=== PATIENT | female | born 1965 | race Caucasian/White ===

== ENCOUNTER 2016-04-13 10:45 | Observation (INO) | payer OTHER ==
[2016-04-13] MEDS ORDERED: ASPIRIN 81 MG CHEWABLE TAB PO ONE (10:59)
[2016-04-13] MEDS ORDERED: NS 500 ML IV ONE (10:59)
--- NOTE | 2016-04-13 11:09 | CPEKG ---
Heart Rate: 74 RR Interval: 811 P-R Interval: 188 QRSD Interval: 78 QT Interval: 412 QTC Interval: 457 P [place]: 52 QRS [place]: -7 T Wave [place]: 25 EKG Severity - BORDERLINE ECG - EKG Impression: SINUS RHYTHM EKG Impression: LOW VOLTAGE THROUGHOUT Electronically Signed By: Meagan Sr 13-Apr-2016 12:02:07
[2016-04-13 11:16] LABS: % IMMATURE GRANULYOCYTES 0.3 % (0.0-1.1); ABSOLUTE IMMATURE GRANULOCYTES 0.02 10^3/uL (0.00-0.10); ADD DIFF? NO; ADD MORPH? NO; ADD SCAN? NO; ATYPICAL LYMPHOCYTE FLAG 10 (0-99); FRAGMENT RBC FLAG 0 (0-99); HEMOGLOBIN 15.8 g/dL (12.6-16.3); LEFT SHIFT FLG 0 (0-99); LIPEMIA HEMOLYSIS FLAG 90 (0-99); MEAN CELL HEMOGLOBIN 32.9 pg (27.9-34.1); MEAN CELL HEMOGLOBIN CONCENTR. 34.3 g/dL (32.4-36.7); MEAN CELL VOLUME 95.8 fL (81.5-99.8); PLATELET CLUMPS FLAG 0 (0-99); PLATELET COUNT 256 10^3/uL (150-400); RED CELL DISTRIBUTION WIDTH 12.1 % (11.5-15.2)
--- NOTE | 2016-04-13 11:29 | DX ---
Portable Chest, 1102 a.m. History: Chest pain Comparison: April 01, 2006 Findings: Lungs clear. Heart normal. No pneumothorax, pleural effusion, mass or adenopathy. There has been progressive mild tortuosity of the descending thoracic aorta. Impression: 1. Nothing acute detected 2. Progressive mild descending thoracic tortuosity. Chronic hypertension?
[2016-04-13 11:32] LABS: INR 0.9 (0.83-1.16)
[2016-04-13 11:33] LABS: APTT 24.7 SEC (23.0-38.0)
--- NOTE | 2016-04-13 11:56 | UCPHY ---
[id number] HPI Chest pain. 50-year-old female by private vehicle from home. She reports the onset of chest pain which she describes as a dull ache underneath her left breast since 1 :00 a.m.. She reports that it has been waxing and waning in intensity but has been more or less constant. No radiation of the pain. No shortness of breath. No cough. No fever. She denies any associated diaphoresis or nausea. Past medical history includes hypertension and borderline hyperlipidemia. No history of coronary artery disease or diabetes. She is a nonsmoker. ROS: Constitutional: No fever, no chills. No weakness. Eyes: No discharge. No changes in vision. ENT: No sore throat. No nasal congestion or rhinorrhea. Respiratory: No cough. No shortness of breath. Cardiac: As above, no palpitations. Gastrointestinal: No abdominal pain, no vomiting, no diarrhea. Genitourinary: No hematuria. No dysuria or increased frequency with urination. Musculoskeletal: No back pain. No neck pain. No myalgias or arthralgias. Skin: No rashes. Neurological: No headache. No focal weakness or altered sensation. Past medical history: As above. Primary care physician is Dr. Ramirez. Social history: Nonsmoker. Here by herself. Physical Exam: General Appearance: Alert, no distress. This patient is responding to questions appropriately and in full sentences. This patient appears well- hydrated and well-nourished. Eyes: Pupils equal and round no pallor or injection. No lid edema, erythema or injection. Respiratory: There are no retractions, lungs are clear to auscultation with good air movement bilaterally. Cardiovascular: Regular rate and rhythm. No murmur. Gastrointestinal: Abdomen is soft and nontender, no masses, bowel sounds normal. No focal tenderness at McBurney's point. No Mena sign. Neurological: Motor sensory function is grossly intact. Cranial nerves are normal. Gait is normal. Skin: Warm and dry, no rashes. Musculoskeletal: Neck is supple and nontender. Extremities are symmetrical. All joints range without pain or impingement. Psychiatric: No agitation. No depression. Database: EKG: EKG time is 11:07 a.m.; EKG shows a narrow complex normal sinus rhythm with a ventricular rate of 74. Low voltage throughout. The [place], QRS, QT intervals are within normal limits. There are no ST-T wave changes indicative of ischemic or injury pattern. No evidence of right heart strain. Interpreted by me. Imaging: Chest x-ray AP per; the cardiac mediastinal silhouette is unremarkable. Torturous descending aorta. No evidence of infiltrate or pneumothorax. No acute cardiopulmonary disease process noted. Interpreted by me. Procedures: Emergency department course: IV placed. She was placed on a director of cardiac rehabilitation. EKG and chest x-ray performed. She was given 324 mg of chewed aspirin. 11:55 a.m., patient re-evaluated. Resting comfortably at this time. Denies any significant discomfort at this time. No shortness of breath. Her vital signs have been reviewed. I discussed the results of her diagnostic test. Secondary to a technical problem we were unable to obtain a basic metabolic panel as well as her lipase and liver function tests. Her 1st troponin is negative. I discussed admission for observation, serial enzymes and provocative testing. She is in agreement with this. Hospitalist paged at this time. 12:20 p.m., spoke with on-call hospitalist. Patient accepted for admission, Dr. Bautista is the accepting physician. Plan discussed with the patient. She will be transferred by ambulance to [facility]. All of her questions were answered. She was admitted in stable and improved condition. Differential Diagnosis: The differential diagnosis on this patient includes but is not limited to acute coronary syndrome, musculoskeletal chest pain, esophageal spasm. Pulmonary embolism, aortic dissection pericarditis, myocarditis, pneumonia, pneumothorax unlikely. This represents a partial list of diagnoses considered. These considerations are based on history, physical exam, past history, reassessment and diagnostic testing. Smoking Status: Never smoked Constitutional: Initial Vital Signs Temperature (C) 36.6 C 04/13/16 11:12 Heart Rate 85 04/13/16 11:12 Respiratory Rate 18 04/13/16 11:12 Blood Pressure 120/89 H 04/13/16 11:12 O2 Sat (%) 95 04/13/16 11:12 O2 Delivery Mode Room Air Allergies/Adverse Reactions: No Known Allergies Allergy (Verified 04/13/16 11:12) Home Medications: Medication Instructions Recorded Ferrous Sulfate [Ferrous Sulf 325 325 mg PO BID 04/13/16 MG (*)] Lisinopril/Hydrochlorothiazide 1 tab PO DAILY 04/13/16 [Lisinopril-Hctz 20-12.5 mg Tab] Medical Decision Making - Data Points Laboratory Results: Laboratory Results 04/13/16 11:05 04/13/16 11:05 Medications Given: Discontinued Medications Aspirin (Aspirin) 324 mg PO EDNOW ONE Stop: 04/13/16 11:00 Last Admin: 04/13/16 11:01 Dose: 324 mg Sodium Chloride (Ns) 500 mls @ 0 mls/hr IV ONCE ONE PRN Reason: As Directed Stop: 04/13/16 11:00 Last Admin: 04/13/16 11:18 Dose: 500 mls Departure - Departure Disposition: [facility] Inpatient Acute Clinical Impression: Chest pain - PQRS PQRS Measurement: Not applicable.
[2016-04-13 12:18] LABS: CARBON DIOXIDE 23 mEq/l (22-31); GLUCOSE 90 mg/dL (70-100); TOTAL PROTEIN 7.2 g/dL (6.3-8.2)
[2016-04-13 12:28] LABS: TROPONIN I < 0.012 ng/mL (0-0.034)
[2016-04-13 13:17] LABS: ALANINE AMINOTRANSFERASE 30 IU/L (9-52); ALBUMIN 4.1 g/dL (3.5-5.0); ALKALINE PHOSPHATASE 60 IU/L (38-126); ANION GAP 13 mEq/L (8-16); ASPARTATE AMINOTRANSFERASE 26 IU/L (14-46); BILIRUBIN,TOTAL 1.1 mg/dL (0.1-1.4); BILIRUBIN-CONJUGATED 0.3 mg/dL (0.0-0.5); BILIRUBIN-UNCONJUGATED 0.8 mg/dL (0.0-1.1); CALCIUM 10.1 mg/dL (8.5-10.4); CHLORIDE 105 mEq/L (97-110); CREATININE 0.8 mg/dL (0.6-1.0); GLOMERULAR FILTRATION RATE > 60; SODIUM 141 mEq/L (134-144)
[2016-04-13] MEDS ORDERED: ACETAMINOPHEN 325 MG TAB PO PRN (13:57)
--- NOTE | 2016-04-13 14:55 | GHP ---
[f rep st] HISTORY AND PHYSICAL DATE OF ADMISSION: 04/13/2016 CHIEF COMPLAINT: Chest pain. HISTORY OF PRESENT ILLNESS: A 50-year-old female with a history of hypertension, who presents with s udden onset of burning, stabbing chest pain at 1:30 the morning of presentation. The patient reports the pain woke her from sleep. She took some antacids and seemed to get some relief. She then had m ildly persistent symptoms, not associated with shortness of breath, nausea, vomiting, dizziness, and went to work at 6 in the morning and just felt off through the rest of the morning. Therefore, prese nted to the urgent care for evaluation. Upon arrival to the [facility], the patient reports that chest louie n has resolved. She no longer is experiencing any burning either. Denies any shortness of breath. Denies lower extremity edema. Denies dyspnea on exertion, pleuritic symptoms, or exertional symptoms . PAST MEDICAL HISTORY: 1. Hypertension. 2. Iron deficiency. 3. Perimenopausal. SOCIAL HISTORY: Negative for tobacco, alcohol, or illicit drugs. FAMILY HISTORY: Unknown; the patient is adopted. REVIEW OF SYSTEMS: A 10-point review of systems is negative with the exception of that reported in t he HPI. PHYSICAL EXAMINATION: VITAL SIGNS: Blood pressure 131/103, heart rate 72, respiratory rate 17, 97% on room air, 36.7. GENERAL: This is an obese middle-aged female in no acute distress. HEENT: Nota ble for moist mucous membranes. Eye exam is negative for any icterus. CARDIAC: Patient is regular rate and rhythm. No murmurs, gallops, or rubs. PULMONARY: Good respiratory effort. Clear to auscu ltation bilaterally. GASTROINTESTINAL: Positive bowel sounds. Obese. Soft. Nontender in all 4 k[address]ants. MUSCULOSKELETAL: Negative for any lower extremity edema. SKIN: Negative for any rashes. NEUROLOGIC: The patient is alert and oriented x3. PSYCHIATRIC: She is cooperative on interview and examination. DATA: White count 5.7, hematocrit 46.0, platelets of 256. Creatinine of 0.8. Troponin less than 0. 012. EKG, which I personally reviewed and interpreted, shows sinus rhythm, normal axis, normal inter vals, with no acute ST-T changes. Chest x-ray, which I personally reviewed and interpreted, shows no acute infiltrates or edema. ASSESSMENT AND PLAN: This is a 50-year-old female with hypertension, presenting with chest pain. 1. Acute chest pain: The patient's only significant risk factor for ischemic disease is her hyperte nsion. We will follow troponins and EKGs in the [facility]. If the patient rules out overnight, we will p erform a treadmill test in the morning. 2. Hypertension: We will continue her combination antihypertensive once medications are reconciled. 3. Prophylaxis: The patient is ambulating. 4. Diet: Cardiac. 5. Disposition: I expect less than 2 midnights if the patient rules out and has successful treadmil l testing in the morning. I discussed the case with the [facility] staff. The patient will be monitored overnight. /[id number]/MODL
[2016-04-14 01:59] VITALS: PULSE 70
[2016-04-14 08:22] VITALS: BP 119/88; RESP 16; TEMP 98; O2SAT 96
--- NOTE | 2016-04-14 09:00 | CPEKG ---
Heart Rate: 69 RR Interval: 870 P-R Interval: 168 QRSD Interval: 78 QT Interval: 408 QTC Interval: 437 P [place]: 37 QRS [place]: 18 T Wave [place]: 19 EKG Severity - BORDERLINE ECG - EKG Impression: SINUS RHYTHM EKG Impression: LOW VOLTAGE THROUGHOUT Electronically Signed By: Ryan Sam 14-Apr-2016 13:42:58
--- NOTE | 2016-04-14 11:10 | CPR ---
[f rep st] NONINVASIVE CARDIAC PROCEDURE REPORT DATE OF PROCEDURE: 04/14/2016 REASON FOR TEST: Chest discomfort. Resting EKG shows a regular sinus rhythm with a rate of 86, resting blood pressure 112/80. She is as ymptomatic. There is no ischemia noted. STRESS TEST PORTION: She was exercised according to the Garret protocol for a total of [address] was stopped due to fatigue and maximal effort. She did reach her maximal heart rate at 150. Exer cise blood pressure 134/82. She had occasional PVCs during the exercise portion and into recovery. She was asymptomatic with no chest pain. No ischemic changes noted. RECOVERY: She spontaneously recovered quickly with recovery heart rate below 100 at 3 minutes. Roland very blood pressure was 118/84. There were no ischemic changes during rest. She did have PVCs durin g the recovery period. At this time, she currently is stable to return to her room. This is a normal treadmill stress test. /[id number]/MODL
--- NOTE | 2016-04-14 20:47 | GDS ---
[f rep st] DISCHARGE SUMMARY DISCHARGE DIAGNOSES: 1. Chest pain, resolved. 2. Hypertension. CONSULTATIONS: None. PROCEDURES PERFORMED: Exercise treadmill stress test performed April 14, 2016, was normal. HISTORY: For details, please see dictated History and Physical dated April 13, 2016, by Dr. Josefa Bautista. In brief, the patient is a 50-year-old female with history of hypertension who presents to the emerge ncy department with sudden onset of a burning, sharp chest pain. She was admitted to the hospital fu rther evaluation. HOSPITAL COURSE: The patient was admitted to the observation unit. Her troponins were negative. He r EKGs were nonischemic. She had a normal chest X-ray. Furthermore, she had no pleuritic symptoms o r exertional symptoms. She was monitored on telemetry without event. She underwent exercise treadmi ll stress test the following morning, which was negative for ischemia. DISPOSITION: Patient is discharged home in stable condition. FOLLOWUP: Follow up with Dr. Danielle Ramirez, her primary care physician. DISCHARGE MEDICATIONS: Please see LIQUITY for complete updated medication list. She will continue all outpatient medications as prescribed. New medications on discharge include omeprazole 20 mg p.o. daily #30 no refills. See if this improves her symptoms, which may be related to acid reflux. /[id number]/MODL
[2016-04-14] MEDS ORDERED: FERROUS SULFATE 325 MG TAB PO SCH (21:00)
[2016-04-15] MEDS ORDERED: LISINOPRIL/HCTZ 20/12.5MG 1 EA TAB PO SCH (09:00)
== END 2016-04-14 13:00 | disposition home or self-care (01) ==
LOC: CED 10:45 → CEDHOLD 12:21 → F1N 13:46
PROVIDERS: ADMIT Hospitalist; ATTEND Hospitalist
DX: R07.89 Other chest pain (principal); I10 Essential (primary) hypertension; Q25.49 Other congenital malformations of aorta; D50.9 Iron deficiency anemia, unspecified
CPT/HCPCS: 71010; 93005; 93017; 96360; 99213; G0378; 80048-PO; 80076-PO; 83690-PO; 84484-PO; 85025-PO; 85610-PO; 85730-PO; G0463-PO

== ENCOUNTER → 2016-04-29 | Outpatient (CLI) | payer OTHER | LOC: CIMAGING 14:45 | DX: Z12.31 Encounter for screening mammogram for malignant neoplasm of breast (principal) | CPT/HCPCS: G0202 ==

== ENCOUNTER → 2017-05-01 | Outpatient (CLI) | payer OTHER | LOC: CIMAGING 14:34 | PROVIDERS: ATTEND Family Medicine | DX: Z12.31 Encounter for screening mammogram for malignant neoplasm of breast (principal) ==

== ENCOUNTER → 2018-07-25 | Outpatient (CLI) | payer OTHER | LOC: CIMAGING 14:39 | PROVIDERS: ATTEND Family Medicine | DX: Z12.31 Encounter for screening mammogram for malignant neoplasm of breast (principal) ==